=== PATIENT | female | born 2000 | race Two or more races ===

== ENCOUNTER 2023-11-20 21:37 | Emergency (ER) | payer BC, OTHER ==
[~2023-11-20] VITALS: Ht 160 cm; Wt 58.1 kg
[2023-11-20 22:25] VITALS: BP 118/67; PULSE 91; RESP 17; O2SAT 97
== END 2023-11-21 04:00 | disposition left against medical advice (07) ==
LOC: ER 21:37
DX: R11.0 Nausea (principal); Z53.21 Procedure and treatment not carried out due to patient leaving prior to being seen by health care provider; V89.2XXA Person injured in unspecified motor-vehicle accident, traffic, initial encounter; Y93.89 Activity, other specified; Y92.89 Other specified places as the place of occurrence of the external cause; Y99.8 Other external cause status